=== PATIENT | male | born 1955 | race Caucasian/White ===

== ENCOUNTER 2025-02-06 18:03 | Inpatient (IN) | payer MEDICARE, OTHER ==
[~2025-02-06] VITALS: Ht 180.3 cm; Wt 77.3 kg
[~2025-02-06 18:03] MED LIST: ASPI-1450 PO; ATOR20TA65 PO
[2025-02-06 19:00] LABS: PLATELET COUNT (AUTO) 170 K/uL (150-450); RED BLOOD CELL COUNT(AUTO) 4.60 MIL/uL (4.50-5.90); RED CELL DISTRIBUTION WIDTH 16.4 % (11.5-14.5); WHITE BLOOD COUNT (AUTO) 5.3 K/uL (4.5-11.0)
[2025-02-06 19:07] LABS: CALCIUM, TOTAL 8.6 mg/dL (8.8-10.5); CREATININE 0.85 mg/dL (0.60-1.30); GLOMERULAR FILTR. RATE CALC > 60 mL/min (>60); GLUCOSE,RANDOM 88 mg/dL (70-110); SODIUM SERUM 144 mmol/L (136-145); UREA NITROGEN, BLOOD 20 mg/dL (7-18)
[2025-02-06 19:13] LABS: ASPARTATE AMINOTRANSFERASE 19.0 U/L (15-37); TOTAL PROTEIN, SERUM 7.9 g/dL (6.4-8.2)
[2025-02-06 19:18] LABS: TROPONIN I-HIGH SENSITIVITY 10 ng/L (<76)
[2025-02-06 21:15] LABS: APPEARANCE,URINE CLEAR (CLEAR); GLUCOSE, URINE (UA) >=1000 mg/dL (NEGATIVE); LEUKOCYTE ESTERASE ,URINE NEGATIVE (NEGATIVE); NITRATE,URINE NEGATIVE (NEGATIVE); OCCULT BLOOD,URINE SMALL (NEGATIVE); SPECIFIC GRAVITIY, URINE 1.032 (1.003-1.030)
[2025-02-06] MEDS ORDERED: ALBU18HF12 IH (21:23)
[2025-02-06] MEDS ORDERED: ATOR40TA71 PO (21:32)
[2025-02-06] MEDS ORDERED: DAPA10TA PO (21:32)
[2025-02-06] MEDS ORDERED: APIX5TAB PO (21:32)
[2025-02-06] MEDS ORDERED: METO25TA3 PO (21:32)
[2025-02-06] MEDS ORDERED: METF-910 PO (21:32)
[2025-02-06] MEDS ORDERED: FLUT1BLS12 IH (21:32)
[2025-02-06] MEDS ORDERED: MIDO5TAB29 PO (21:32)
[2025-02-06 21:41] LABS: SQUAMOUS EPITHELIAL CELL,UR Few /LPF (None Seen)
[2025-02-06 22:44] VITALS: BP 109/77; PULSE 67; RESP 17; TEMP 97.7; O2SAT 97
[2025-02-06] MEDS ORDERED: HYDROCODONE/ACETAMINOPHEN 5-325 MG TABLET PO PRN (23:30)
[2025-02-06] MEDS ORDERED: MORPHINE SULFATE 4 MG/ML SYRINGE IVP PRN (23:30)
[2025-02-06] MEDS ORDERED: ZOLPIDEM TARTRATE 10 MG TABLET PO PRN (23:30)
[2025-02-06] MEDS ORDERED: MAGNESIUM HYDROXIDE SUSPENSION 30 ML UDCUP PO PRN (23:30)
[2025-02-06] MEDS ORDERED: ACETAMINOPHEN 325 MG TABLET PO PRN (23:30)
[2025-02-06] MEDS ORDERED: ALBUTEROL SULFATE HFA 90 MCG/PUFF 8 GM INHALER IH PRN (23:30)
[2025-02-06] MEDS ORDERED: IPRATROPIUM BROMIDE 0.5 MG/2.5 ML NEB SOLUTION NEB PRN (23:30)
[2025-02-06] MEDS ORDERED: ONDANSETRON HCL 4 MG/2 ML VIAL IVP PRN (23:30)
[2025-02-06] MEDS: NITROGLYCERIN 2% (1 GM=INCH) OINTMENT PACKET TP SCH (23:51)
[2025-02-06 23:58] VITALS: BP 108/70; PULSE 68; RESP 18; TEMP 98.2; O2SAT 98
[2025-02-07 00:09] LABS: TROPONIN I-HIGH SENSITIVITY 11 ng/L (<76)
[2025-02-07 05:20] VITALS: BP 91/62; PULSE 63; RESP 18; TEMP 97.7; O2SAT 96
[2025-02-07 07:00] LABS: CHOL/HDL RATIO 3.5 (4.2-7.3); LDL CHOL (CALC.) 84.0 mg/dL (0-130)
[2025-02-07 07:25] LABS: TROPONIN I-HIGH SENSITIVITY 10 ng/L (<76)
[2025-02-07 08:19] VITALS: BP 93/66; PULSE 65; RESP 18; TEMP 97.5; O2SAT 95
[2025-02-07] MEDS: APIXABAN 5 MG TABLET PO SCH (09:20)
[2025-02-07] MEDS: ATORVASTATIN CALCIUM 40 MG TABLET PO SCH (09:21)
[2025-02-07] MEDS: ASPIRIN 81 MG CHEWABLE TABLET PO SCH (09:21)
[2025-02-07] MEDS: PANTOPRAZOLE SODIUM 40 MG/VIAL IVP SCH (09:21)
[2025-02-07] MEDS: DOCUSATE SODIUM 100 MG CAPSULE PO SCH (09:21)
[2025-02-07] MEDS: DAPAGLIFLOZIN PROPANEDIOL 5 MG TABLET PO SCH (09:21)
[2025-02-07 11:57] VITALS: BP 89/65; PULSE 68; RESP 18; TEMP 97.9; O2SAT 98
[2025-02-07 12:02] LABS: TROPONIN I-HIGH SENSITIVITY 9 ng/L (<76)
[2025-02-07] MEDS: SODIUM CHLORIDE 0.9% 250 ML IV ONE (13:10)
[2025-02-07 14:14] VITALS: BP 103/66; RESP 17; O2SAT 99
[2025-02-07 14:52] VITALS: BP 113/77; PULSE 66; RESP 16; TEMP 97.6; O2SAT 99
[2025-02-07 15:54] VITALS: BP 108/67; PULSE 69; RESP 19; TEMP 98; O2SAT 98
[2025-02-07 17:15] LABS: GLUCOMETER DEV NAME(LOC) ERT.7; GLUCOSE,POINT OF CARE 77 MG/DL (70-110)
== END 2025-02-07 19:35 | DRG 292 ==
LOC: EMS 18:05 → EDH 21:24 → 5N 22:06
PROVIDERS: ADMIT Hospitalist; ATTEND Hospitalist
DX: I50.33 Acute on chronic diastolic (congestive) heart failure (principal); E44.0 Moderate protein-calorie malnutrition; J96.10 Chronic respiratory failure, unspecified whether with hypoxia or hypercapnia; E11.9 Type 2 diabetes mellitus without complications; J44.9 Chronic obstructive pulmonary disease, unspecified; I48.91 Unspecified atrial fibrillation; E78.5 Hyperlipidemia, unspecified; Z91.148 Patient's other noncompliance with medication regimen for other reason; Z79.82 Long term (current) use of aspirin; Z79.899 Other long term (current) drug therapy; Z68.23 Body mass index [BMI] 23.0-23.9, adult
CPT/HCPCS: 71045; 80048; 80061; 80076; 81001; 82962; 83690; 83880; 84484; 85025; 93005; 93306; 99285; J2470; 36415-L1; 36415-TC